=== PATIENT | female | born 1960 | race Caucasian/White ===

== ENCOUNTER 2017-10-28 15:51 | Emergency (ER) | payer BC ==
[~2017-10-28] VITALS: Ht 177.8 cm; Wt 70.5 kg
[~2017-10-28 15:51] MED LIST: CARV-49 PO; DIPH-735 PO
[2017-10-28] MEDS ORDERED: HYDROcodone/acetaminophen 10/325mg tab PO ONE (17:40)
[2017-10-28] MEDS ORDERED: ondansetron 4mg rapidly disintigrating tab PO ONE (17:40)
[2017-10-28] MEDS ORDERED: ondansetron/PF 4mg/2ml inj IV ONE (18:05)
[2017-10-28] MEDS ORDERED: fentaNYL/PF 50MCG/1 ML 2ML syringe IV ONE (18:05)
[2017-10-28] MEDS ORDERED: HYDR-565 PO (18:53)
[2017-10-28 19:24] VITALS: BP 151/97
== END 2017-10-28 19:26 | disposition home or self-care (01) ==
LOC: ER 15:52
DX: S82.851A Displaced trimalleolar fracture of right lower leg, initial encounter for closed fracture (principal); Z79.899 Other long term (current) drug therapy; W01.0XXA Fall on same level from slipping, tripping and stumbling without subsequent striking against object, initial encounter; Y93.89 Activity, other specified; Y92.89 Other specified places as the place of occurrence of the external cause; Y99.8 Other external cause status
CPT/HCPCS: 27818; 73600; 73610; 96374; 96375; 99284; A6449; J2405; J3010

== ENCOUNTER 2017-11-04 07:53 | Day surgery (SDC) | payer BC ==
[2017-11-01 11:07] LABS: BASOPHILS % (AUTO) 0.6 % (0-1); EOSINOPHILS # (AUTO) 0.2 X10'3 (0-0.9); EOSINOPHILS % (AUTO) 3.8 % (0-6); LYMPHOCYTES # (AUTO) 1.3 X10'3 (1.1-4.8); LYMPHOCYTES % (AUTO) 24.5 % (21-51); MEAN CORPUSCULAR HEMOGLOBIN 34.5 PG (27.0-31.0); MEAN CORPUSCULAR HGB CONC 34.5 % (33.0-36.5); MEAN CORPUSCULAR VOLUME 99.9 FL (78-98); MEAN PLATELET VOLUME 8.4 FL (7.4-10.4); MONOCYTES # (AUTO) 0.4 X10'3 (0-0.9); MONOCYTES % (AUTO) 7.7 % (2-12); NEUTROPHILS # (AUTO) 3.5 X10'3 (1.8-7.7); NEUTROPHILS % (AUTO) 63.4 % (42-75); PRE OP HEMATOCRIT 38.9 % (35.0-45.0); PRE OP HEMOGLOBIN 13.4 g/dL (12.0-16.0); PRE OP PLATELET COUNT 203 X10'3 (140-440); RED CELL DISTRIBUTION WIDTH 14.1 % (11.5-14.5)
[2017-11-01 11:21] LABS: ALBUMIN 3.4 G/DL (3.4-5.0); ALBUMIN/GLOBULIN RATIO 1.1 (1.1-1.5); ALKALINE PHOSPHATASE 59 IU/L (46-116); BLOOD UREA NITROGEN 13 MG/DL (7-18); BUN/CREATININE RATIO 20.6 (6.6-38.0); CALCIUM 9.4 MG/DL (8.5-10.1); CHLORIDE 104 MMOL/L (99-107); CREATININE 0.63 MG/DL (0.40-0.90); PRE OP ALT 26 U/L (30-65); PRE OP ANION GAP 9 (8-16); PRE OP AST 22 U/L (10-37); PRE OP BILIRUB, TOTAL 0.5 MG/DL (0.0-1.0); PRE OP GLUCOSE 101 MG/DL (70-104); PRE OP POTASSIUM 4.2 MMOL/L (3.4-5.1); PRE OP SODIUM 141 MMOL/L (135-145); TOTAL CARBON DIOXIDE 28.4 MMOL/L (24-32); TOTAL PROTEIN 6.6 G/DL (6.4-8.2); eGFR > 90 ML/MIN
[~2017-11-04] VITALS: Ht 177.8 cm; Wt 70.9 kg
[2017-11-04] VITALS (8 sets, daily range): BP systolic 111–160; BP diastolic 70–103
[~2017-11-04 07:53] MED LIST changes: -CARV-49 PO; -DIPH-735 PO; +HYDR-565 PO; +MESSAGE TO NURSING PO ONE; +famotidine 20mg tablet PO ONE; +ringers solution, lacted 1,000 ML IV SCH
[2017-11-04] MEDS ORDERED: VANCOMYCIN INJ 1000 MG in NORMAL SALINE 250ml IV.SOLN IV ONE (08:24)
[2017-11-04] MEDS ORDERED: ceFAZolin 1GM/D5W- ADD-VANTAGE 50 ML IV ONE (08:24)
[2017-11-04] MEDS ORDERED: metoclopramide 10mg tablet PO ONE (08:28)
[2017-11-04] MEDS ORDERED: BUPIVAcaine/PF 2.5 mg/ml (0.25%) 30ml vial ONE (09:21)
[2017-11-04] MEDS ORDERED: ringers solution, lacted 1,000 ML IV SCH (10:01)
[2017-11-04] MEDS ORDERED: morphine 4 MG/ML inj SYRINge IV PRN ×2 (10:05)
[2017-11-04] MEDS ORDERED: meperidine/PF 50mg/ml syringe IV PRN ×3 (10:05)
[2017-11-04] MEDS ORDERED: proCHLORperazine 10 MG/2 ml inj IV PRN (10:05)
[2017-11-04] MEDS ORDERED: ondansetron/PF 4mg/2ml inj IV PRN (10:05)
[2017-11-04] MEDS ORDERED: sevoflurane 250ml liquid IH ONE (10:30)
[2017-11-04] MEDS ORDERED: ROPIVAcaine 0.5% (5mg/ml) 30ml vial ONE (10:34)
[2017-11-04] MEDS ORDERED: MIDAZolam 5mg/5ml vial ONE (10:35)
[2017-11-04] MEDS ORDERED: fentaNYL/PF 50MCG/1 ML 2ML syringe ONE (10:35)
[2017-11-04] MEDS ORDERED: LIDOcaine 1%/PF (10mg/ml) 5ml vial ONE (11:09)
[2017-11-04] MEDS ORDERED: propofol inj 20 ML IV ONE ×2 (11:09)
[2017-11-04] MEDS ORDERED: ondansetron/PF 4mg/2ml inj ONE (11:29)
[2017-11-04] MEDS ORDERED: dexamethasone sod phosphate 4mg/ml inj. ONE (11:29)
[2017-11-04] MEDS ORDERED: ketorolac trometh. 30mg/ml inj. ONE (11:56)
[2017-11-04] MEDS ORDERED: glycopyrrolate 0.2mg/ml inj ONE (11:59)
[2017-11-04] MEDS ORDERED: acetaminophen 1,000mg/100ml IV 100 ML IV ONE (12:25)
[2017-11-04] MEDS ORDERED: oxyCODONE/APAP 10/325mg tablet PO PRN ×2 (12:50)
== END 2017-11-04 13:03 | disposition home or self-care (01) ==
LOC: PAS 07:53
PROVIDERS: ATTEND Orthopaedic Surgery
DX: S82.851A Displaced trimalleolar fracture of right lower leg, initial encounter for closed fracture (principal); I10 Essential (primary) hypertension; M85.88 Other specified disorders of bone density and structure, other site; F17.210 Nicotine dependence, cigarettes, uncomplicated; J43.9 Emphysema, unspecified; Z72.89 Other problems related to lifestyle; Z98.890 Other specified postprocedural states; W01.0XXA Fall on same level from slipping, tripping and stumbling without subsequent striking against object, initial encounter; Y93.89 Activity, other specified; Y92.89 Other specified places as the place of occurrence of the external cause; Y99.8 Other external cause status
CPT/HCPCS: 27822; 36415; 73600; 76001; 80053; 85025; 93005; A6222; A6449; C1713; J0131; J0690; J1100; J1885; J2001; J2175; J2250; J2405; J2704; J2795; J3010; J3370; J3490; J7120; J8597; A7000